=== PATIENT | female | born 1950 | race American Indian/Alaskan Native ===

== ENCOUNTER 2017-11-23 03:29 | Observation (INO) | payer OTHER ==
--- NOTE | 2017-11-23 03:58 | ED PDOC ---
Arrival/HPI - General Chief Complaint: Abdominal Pain Time Seen by Provider: 11/23/17 03:55 Historian: Patient - History of Present Illness Narrative History of Present Illness (Text): 11/23/17 03:57 67 year old female, whose past medical history includes bone cancer in the past , knee replacement, and CVA presents to the emergency department complaining of chest discomfort associated with some nausea that began this evening. Patient denies any fever, chills, shortness of breath, vomiting, diarrhea, urinary symptoms, back pain, neck pain, headache, dizziness, or any other complaints. Time/Duration: Other (this evening) Symptom Onset: Gradual Symptom Course: Unchanged Activities at Onset: Light Context: Home Past Medical History - Provider Review Nursing Documentation Reviewed: Yes - Reproductive Menopause: Yes - Cardiac Hx Hypertension: Yes - Pulmonary Hx Respiratory Disorders: No - Neurological Hx Neurological Disorder: No - HEENT Hx HEENT Disorder: No - Renal Hx Renal Disorder: No - Endocrine/Metabolic Hx Endocrine Disorders: No - Hematological/Oncological Hx Cancer: Yes (bone) - Integumentary Hx Dermatological Disorder: No - Musculoskeletal/Rheumatological Hx Musculoskeletal Disorders: No - Gastrointestinal Hx Gastrointestinal Disorders: No - Genitourinary/Gynecological Hx Genitourinary Disorders: No - Psychiatric Hx Psychophysiologic Disorder: No Hx Substance Use: No Family/Social History - Physician Review Nursing Documentation Reviewed: Yes Family/Social History: No Known Family HX Smoking Status: Never Smoked Hx Alcohol Use: No Hx Substance Use: No Allergies/Home Meds Allergies/Adverse Reactions: Allergies iodine Allergy (Verified 11/23/17 03:41) PAIN Home Medications: Home Meds Medication Instructions Recorded Confirmed Aspirin [Aspirin Chewable] 81 mg PO DAILY 11/23/17 11/23/17 Irbesartan/Hydrochlorothiazide 1 tab PO DAILY 11/23/17 11/23/17 [Irbesartan-Hctz 300-12.5 mg Tb] Iron,Carb/Vit C/Vit B12/Folic 1 tab PO DAILY 11/23/17 11/23/17 [Iron 100 Plus Tablet] Lercan 10 mg PO DAILY 11/23/17 11/23/17 Review of Systems - Physician Review All systems were reviewed & negative as marked: Yes - Review of Systems Constitutional: absent: Fevers, Other (Chills) Respiratory: absent: SOB Cardiovascular: Chest Pain Gastrointestinal: Nausea. absent: Diarrhea, Vomiting Genitourinary Female: absent: Dysuria, Frequency, Hematuria Musculoskeletal: absent: Back Pain, Neck Pain Neurological: absent: Headache, Dizziness Physical Exam Vital Signs Reviewed: Yes Vital Signs Temp Pulse Resp BP Pulse Ox 11/23/17 09:33 98.3 F 63 18 98 11/23/17 07:49 98.5 F 66 19 131/65 98 11/23/17 06:00 65 18 143/72 100 11/23/17 03:43 98.1 F 62 18 149/76 100 Temperature: Afebrile Blood Pressure: Normal Pulse: Regular Respiratory Rate: Normal Appearance: Positive for: Well-Appearing, Non-Toxic, Comfortable Pain Distress: None Mental Status: Positive for: Alert and Oriented X 3 - Systems Exam Head: Present: Atraumatic, Normocephalic Pupils: Present: PERRL Extroacular Muscles: Present: EOMI Conjunctiva: Present: Normal Mouth: Present: Moist Mucous Membranes Neck: Present: Normal Range of Motion Respiratory/Chest: Present: Clear to Auscultation, Good Air Exchange. No: Respiratory Distress, Accessory Muscle Use Cardiovascular: Present: Regular Rate and Rhythm, Normal S1, S2. No: Murmurs Abdomen: No: Tenderness, Distention, Peritoneal Signs Back: Present: Normal Inspection Upper Extremity: Present: Normal Inspection. No: Cyanosis, Edema Lower Extremity: Present: Normal Inspection. No: Edema Neurological: Present: GCS=15, CN II-XII Intact, Speech Normal Skin: Present: Warm, Dry, Normal Color. No: Rashes Psychiatric: Present: Alert, Oriented x 3, Normal Insight, Normal Concentration Medical Decision Making ED Course and Treatment: 11/23/17 03:58 Impression: 67 year old female presents complaining of chest discomfort associated with some nausea that began this evening. Plan: -- EKG -- Labs -- Chest X-ray -- Pepcid, IV Fluids, Zofran Inj -- Reassess and disposition Progress Notes: 11/23/17 05:00 EKG shows Sinus Bradycardia at 59 BPM with RBBB. Interpreted by me. 11/23/17 05:28 CXR Impression: As read by me, no acute process. 11/23/17 06:23 Case discussed with Desktop Publishing Operator and Dr. Ben Munoz who is aware and agrees with the plan. Accepts patient into hospitalist service. - Lab Interpretations Lab Results: 11/23/17 04:30 11/23/17 05:40 Lab Results 11/23/17 05:40: Sodium 144, Potassium 3.8, Chloride 102, Carbon Dioxide 30, Anion Gap 16, BUN 20, Creatinine 1.1, Est GFR ( Amer) 60, Est GFR (Non- Af Amer) 49, Random Glucose 104, Calcium 9.3, Total Bilirubin 0.3, AST 27, ALT 17, Alkaline Phosphatase 73, Lactate Dehydrogenase 670, Total Creatine Kinase 161, Troponin I < 0.01, Total Protein 8.2, Albumin 4.7, Globulin 3.6, Albumin/ Globulin Ratio 1.3, Lipase 127 11/23/17 05:40: PT 9.8, INR 0.86 L, APTT 17.5 L 11/23/17 04:30: WBC 5.9, RBC 3.96, Hgb 11.1 L, Hct 32.8 L, MCV 82.8, MCH 28.0, MCHC 33.8, RDW 12.8, Plt Count 305, MPV 10.3 I have reviewed the lab results: Yes - RAD Interpretation Radiology Orders: 11/23/17 04:01 CHEST PORTABLE [RAD] Stat - EKG Interpretation Interpreted by ED Physician: Yes Type: 12 lead EKG - Medication Orders Current Medication Orders: Acetaminophen (Tylenol 325mg Tab) 650 mg PO Q6 PRN PRN Reason: Pain, Mild (1-3) Aspirin (Aspirin Chewable) 81 mg PO DAILY [facility] Atorvastatin Calcium (Lipitor) 10 mg PO DIN [facility] Enoxaparin Sodium (Lovenox) 40 mg SC DAILY JAZ PRN Reason: Protocol Hydrochlorothiazide (Microzide) 12.5 mg PO DAILY [facility] Sodium Chloride (Sodium Chloride 0.9%) 1,000 mls @ 100 mls/hr IV .Q10H JAZ Last Admin: 11/23/17 04:50 Dose: 100 mls/hr eMAR Start Stop Document 11/23/17 04:50 AD (Rec: 11/23/17 04:50 AD [id number]) Intravenous Solution Start Date 11/23/17 Start Time 04:50 Losartan Potassium (Cozaar) 25 mg PO DAILY [facility] Multivitamins/Minerals (Therapeutic-M Tab) 1 tab PO 0800 [facility] Ondansetron HCl (Zofran Inj) 4 mg IVP Q6 PRN PRN Reason: Nausea/Vomiting Oxycodone/Acetaminophen (Percocet 5/325 Mg Tab) 1 tab PO Q4 PRN PRN Reason: Pain, moderate (4-7) Stop: 11/26/17 12:29 Pantoprazole Sodium (Protonix Ec Tab) 40 mg PO DAILY JAZ Vitamin B Complex/Vit C/Folic Acid (Nephro-Radha) 1 tab PO 0800 JAZ Discontinued Medications Famotidine (Pepcid) 20 mg IVP STAT STA Stop: 11/23/17 04:03 Last Admin: 11/23/17 04:50 Dose: 20 mg IVP Administration Document 11/23/17 04:50 AD (Rec: 11/23/17 04:50 AD [id number]) Charges for Administration # of IVP Administrations 1 Ondansetron HCl (Zofran Inj) 4 mg IVP ONCE ONE Stop: 11/23/17 04:03 Last Admin: 11/23/17 04:50 Dose: 4 mg IVP Administration Document 11/23/17 04:50 AD (Rec: 11/23/17 04:50 AD [id number]) Charges for Administration # of IVP Administrations 1 - Scribe Statement The provider has reviewed the documentation as recorded by the Miroslava Stewart Provider Scribe Attestation: All medical record entries made by the Loretoibnoam were at my direction and personally dictated by me. I have reviewed the chart and agree that the record accurately reflects my personal performance of the history, physical exam, medical decision making, and the department course for this patient. I have also personally directed, reviewed, and agree with the discharge instructions and disposition.\ Disposition/Present on Arrival - Present on Arrival Any Indicators Present on Arrival: No History of DVT/PE: No History of Uncontrolled Diabetes: No Urinary Catheter: No History of Decub. Ulcer: No History Surgical Site Infection Following: None - Disposition Have Diagnosis and Disposition been Completed?: Yes Diagnosis: Chest pain Disposition: HOSPITALIZED Disposition Time: 06:25 Patient Plan: Observation Patient Problems: Current Active Problems Problem Status Onset Chest pain Acute Condition: STABLE
[2017-11-23] MEDS: Sodium Chloride 0.9% 1,000 ML IV SCH ×2 (04:50→14:19)
[2017-11-23 05:09] LABS: HEMOGLOBIN 11.1 g/dL (12.0-16.0); MEAN CELL VOLUME 82.8 fl (80.0-105.0); MEAN CORPUSCULAR HGB CONC 33.8 g/dl (31.0-37.0); MEAN PLATELET VOLUME 10.3 fl (7.0-11.0); RBC 3.96 10^6/uL (3.5-6.1); RED CELL DISTRIBUTION WIDTH 12.8 % (11.5-14.5); WHITE BLOOD COUNT 5.9 10^3/ul (4.5-11.0)
[2017-11-23 05:59] LABS: ALB/GLOB RATIO 1.3 (1.1-1.8); ALBUMIN 4.7 g/dL (3.0-4.8); ALT/SGPT 17 U/L (7-56); AST/SGOT 27 U/L (14-36); BLOOD UREA NITROGEN 20 mg/dL (7-21); CALCIUM 9.3 mg/dL (8.4-10.5); GFR AFRICAN-AMERICAN 60; GFR NON-AFRICAN AMERICAN 49; LIPASE 127 U/L (23-300)
[2017-11-23 06:08] LABS: INR 0.86 (0.93-1.08); PARTIAL THROMBOPLASTIN TIME 17.5 Seconds (25.1-36.5); PROTHROMBIN TIME 9.8 SECONDS (9.4-12.5); TROPONIN I < 0.01 ng/mL
--- NOTE | 2017-11-23 07:12 | CP.PCM.HP ---
<ElyssakelyNabor olson - Last Filed: 11/23/17 14:04> History of Present Illness - History of Present Illness History of Present Illness: Medicine H&P for Dr. Echols cc: chest pain 67 F with PMH that includes HTN, CVA x 2, NH, CAD, Multiple myeloma presents to [facility] [place] for complaint of chest pain. Patient states that the pain began in the evening. It started as a burning pain substernal radiating to the back. She rates it as severe. She states that she hah an associated episode of nausea/ vomiting with NBNB emesis. She also admits to shortness of breath but denies diaphoresis. Denied any aggravating or alleviating factors. She states that she sleep with one pillow. She reports that she can walk many blocks without getting SOB. Denies recent illnes or sick contacts. Admits to chillsand palpitations but denies fevers, abdominal pain, diarrhea, constipation, incontinence, or urinary symptoms. PMH: HTN, CVA x 2, NH, CAD, Multiple myeloma, Anemia, HLD Meds: As per EMR Allergy: Iodine PSH: cardiac cath FH: non-contributory Social: denies tobacco/EtOH/illicit drug use, lives with daughter, applying for [employer] (from [employer]) Present on Admission - Present on Admission Any Indicators Present on Admission: No History of DVT/PE: No History of Uncontrolled Diabetes: No Urinary Catheter: No Decubitus Ulcer Present: No Decubitus Ulcer Stage: Unstageable History Surgical Site Infection Following: None Review of Systems - Review of Systems All systems: reviewed and no additional remarkable complaints except (as per HPI ) Past Patient History - Past Social History Smoking Status: Never Smoked - CARDIAC Hx Hypertension: Yes - PULMONARY Hx Respiratory Disorders: No - NEUROLOGICAL Hx Neurological Disorder: No - HEENT Hx HEENT Problems: No - RENAL Hx Chronic Kidney Disease: No - ENDOCRINE/METABOLIC Hx Endocrine Disorders: No - HEMATOLOGICAL/ONCOLOGICAL Hx Cancer: Yes (bone) - INTEGUMENTARY Hx Dermatological Problems: No - MUSCULOSKELETAL/RHEUMATOLOGICAL Hx Musculoskeletal Disorders: No - GASTROINTESTINAL Hx Gastrointestinal Disorders: No - GENITOURINARY/GYNECOLOGICAL Hx Genitourinary Disorders: No - PSYCHIATRIC Hx Psychophysiologic Disorder: No Hx Substance Use: No - SURGICAL HISTORY Hx Surgeries: No Meds Home Medications: Home Medication List Medication Instructions Recorded Confirmed Type RX: Atorvastatin [Lipitor] 40 mg PO DIN #30 tab 11/24/17 Rx RX: Pantoprazole [Protonix EC Tab] 40 mg PO DAILY #30 ect 11/24/17 Rx RX: Sucralfate [Carafate Oral Susp] 1 gm PO 0630,1130,1630,2200 #56 udc Rx Allergies/Adverse Reactions: Allergies Allergy/AdvReac Type Severity Reaction Status Date / Time iodine Allergy PAIN Verified 11/23/17 03:41 Physical Exam - Constitutional Appears: No Acute Distress - Head Exam Head Exam: ATRAUMATIC, NORMOCEPHALIC - Eye Exam Eye Exam: EOMI, Normal appearance Pupil Exam: PERRL - ENT Exam ENT Exam: Mucous Membranes Moist - Neck Exam Neck exam: Positive for: Normal Inspection - Respiratory Exam Respiratory Exam: Clear to Auscultation Bilateral, NORMAL BREATHING PATTERN - Cardiovascular Exam Cardiovascular Exam: REGULAR RHYTHM, +S1, +S2. absent: Diastolic murmur, Systolic Murmur - GI/Abdominal Exam GI & Abdominal Exam: Soft, Tenderness - Extremities Exam Extremities exam: Positive for: normal capillary refill, pedal edema, pedal pulses present. Negative for: calf tenderness - Back Exam Back exam: absent: CVA tenderness (L), CVA tenderness (R) - Neurological Exam Neurological exam: Alert, CN II-XII Intact, Oriented x3 - Psychiatric Exam Psychiatric exam: Normal Affect, Normal Mood - Skin Skin Exam: Dry, Intact, Normal Color, Warm Results - Vital Signs Recent Vital Signs: Last Vital Signs Temp 98.1 F 11/23/17 03:43 Pulse 62 11/23/17 03:43 Resp 18 11/23/17 03:43 BP 149/76 11/23/17 03:43 Pulse Ox 100 11/23/17 03:43 - Labs Result Diagrams: 11/23/17 04:30 11/23/17 05:40 Assessment & Plan - Assessment and Plan (Free Text) Assessment: 67 F with PMH that includes HTN, CVA x 2, NH, CAD, Multiple myeloma presents to [facility] [place] for complaint of chest pain. Plan: 1.) Chest pain Admit to telemetry EKG Sinus bradycardia, RBBB Troponin neg x 1, f/u second f/u Echo Cardio consult f/u TSH ASA 2.) Back pain Cervical, Thoracic, Lumbar Xrs Tylenol PRN mild pain Percocet PRN for Moderate Pain 3.) HTN Losartan hCTZ Norvasc 4.) CAD ASA Lipitor 5.) HLD Lipitor 6.) Prophylactic Measures Lovenox Protonix HHD - Date & Time Date: 11/23/17 Time: 07:00 <StephanieLewis eason - Last Filed: 11/24/17 14:11> Results - Vital Signs Recent Vital Signs: Last Vital Signs Temp 98 F 11/24/17 11:28 Pulse 62 11/24/17 11:28 Resp 18 11/24/17 11:28 BP 141/68 11/24/17 11:28 Pulse Ox 100 11/24/17 05:50 - Labs Result Diagrams: 11/24/17 08:30 11/24/17 08:30 Labs: Laboratory Results - last 24 hr 11/23/17 11/24/17 11/24/17 18:30 08:30 08:30 WBC 4.7 D RBC 3.70 Hgb 10.3 L Hct 31.2 L MCV 84.3 MCH 27.8 MCHC 33.0 RDW 12.6 Plt Count 258 MPV 9.6 Gran % 44.1 L Lymph % (Auto) 44.5 H Knox % (Auto) 8.4 H Eos % (Auto) 3.0 Baso % (Auto) 0.0 Gran # 2.06 Lymph # (Auto) 2.1 Knox # (Auto) 0.4 Eos # (Auto) 0.1 Baso # (Auto) 0.00 Sodium 147 Potassium 4.3 Chloride 106 Carbon Dioxide 33 Anion Gap 12 BUN 14 Creatinine 1.0 Est GFR ( Amer) > 60 Est GFR (Non-Af Amer) 55 Random Glucose 89 Calcium 8.5 Total Bilirubin 0.2 AST 30 ALT 19 Alkaline Phosphatase 61 Troponin I < 0.01 Total Protein 6.9 Albumin 3.7 Globulin 3.1 Albumin/Globulin Ratio 1.2 Attending/Attestation - Attestation I have personally seen and examined this patient.: Yes I have fully participated in the care of the patient.: Yes I have reviewed all pertinent clinical information: Yes Notes (Text): 11/24/17 13:47 Medical record note made by the resident after discussion with my direction and input after the patient was personally seen and examined by me. I have reviewed the chart and agree that the record accurately reflects by personal performance of the history, physical exam, data review, and medical decision-making, in the course for the patient. I have also personally directed the plan of care. History was taken with the help of bandage winding machine operator.Patient is poor historian. 67 old Female , recent immigrant from [place], with PMH that includes HTN, CVA x ?, CAD, MUS is admitted with epigastric pain, has tenderness in epeigatric area.Due to H/O CAD, and NH in [place] , will monitor patient in telemetry, will get serial troponinin, w will get 2D echo and cardiology consult. Patient calcium level is normal, there is no renal failure.Due to H/O MUS/ Multiple myeloma?, we will get x rays of spine for skeletal survey. Management plan was discussed in detail with patient. Education was provided. 11/24/17 14:10
[2017-11-23 08:23] LABS: HDL CHOLESTEROL 51 mg/dL (29-60)
[2017-11-23 08:34] LABS: LDL CHOLESTEROL 155 mg/dL (0-129)
--- NOTE | 2017-11-23 09:37 | RAD ---
HISTORY: chest pain COMPARISON: No prior. FINDINGS: LUNGS: No active pulmonary disease. PLEURA: No significant pleural effusion identified, no pneumothorax apparent. CARDIOVASCULAR: Normal. OSSEOUS STRUCTURES: No significant abnormalities. VISUALIZED UPPER ABDOMEN: Normal. OTHER FINDINGS: None. IMPRESSION: No active disease.
[2017-11-23 13:27] VITALS: BMI 29.7
[2017-11-23] MEDS ORDERED: Pneumococcal 23-Valent Vaccine IM ONE (13:28)
--- NOTE | 2017-11-23 14:05 | RAD ---
PROCEDURE: Cervical Spine Radiographs. HISTORY: Pain. COMPARISON: None. FINDINGS: BONES: Alignment maintained. No fracture. Dens Intact. DISC SPACES: There is disc degeneration at C4-5 SOFT TISSUES: Normal. No prevertebral soft tissue swelling. OTHER FINDINGS: None. IMPRESSION: Mild disc degeneration at C4-5
--- NOTE | 2017-11-23 14:06 | RAD ---
HISTORY: back pain COMPARISON: No prior. FINDINGS: BONES: Alignment maintained. No fracture. DISC SPACES: There is disc degeneration in the lower thoracic spine SOFT TISSUES: Normal. OTHER FINDINGS: None. IMPRESSION: Disc degeneration in the lower thoracic spine
--- NOTE | 2017-11-23 14:07 | RAD ---
PROCEDURE: Radiographs of the Lumbar Spine. HISTORY: back COMPARISON: No prior. FINDINGS: BONES: Normal alignment. No listhesis. No fracture. DISC SPACES: Unremarkable. OTHER FINDINGS: None. IMPRESSION: Unremarkable radiographs of the lumbar spine.
[2017-11-23] MEDS: Pantoprazole 40 mg EC Tab PO SCH (14:08)
[2017-11-23] MEDS: Enoxaparin 40 mg Syringe SC SCH (14:08)
--- NOTE | 2017-11-23 15:19 | CON ---
DATE: 11/23/2017 CARDIOLOGY CONSULTATION HISTORY OF PRESENT ILLNESS: The patient is a 67-year-old woman who was from [facility] who presents with atypical epigastric discomfort. The patient has a history of hypertension and was found to have hypercholesterolemia. No diabetes mellitus. No previous cardiac history. SOCIAL HISTORY: The patient denies smoking. REVIEW OF SYSTEMS: A 14-point review of systems was reviewed in detail. No cardiac symptomatology is noted. PHYSICAL EXAMINATION: VITAL SIGNS: Stable. NECK: Negative JVD. LUNGS: Without rales. HEART: S1 and S2. EXTREMITIES: Without edema. LABORATORY DATA: Cholesterol was 260. Troponins are negative x2. IMPRESSION: 1. Atypical chest pain. 2. No evidence for acute coronary syndrome. 3. Hypercholesterolemia. 4. Hypertension. PLAN: Given these findings, the patient should be started on statin therapy. There is no evidence for acute coronary syndrome. We will obtain the third troponin. She will need to be on a cardiac risk reduction program. Alen Diaz MD
--- NOTE | 2017-11-23 16:52 | CARD ---
APPROVED REPORT EKG Measurement Heart [id number] <Conclusion> Sinus bradycardia Right bundle branch block Abnormal ECG
[2017-11-23] MEDS: Oxycodone/Acetaminophen 5/325 mg Tab PO PRN (21:28)
[2017-11-24] MEDS: Oxycodone/Acetaminophen 5/325 mg Tab PO PRN (05:35)
[2017-11-24] MEDS: Sodium Chloride 0.9% 1,000 ML IV SCH (05:36)
[2017-11-24 05:51] VITALS: RESP 18
[2017-11-24] MEDS ORDERED: Multivitamin With Minerals Tab PO SCH (08:00)
[2017-11-24] MEDS ORDERED: Multivitamin Vitamin B Complex (Nephro-Vite) Tab PO SCH (08:00)
[2017-11-24 08:42] LABS: EOS # 0.1 (0.0-0.7); GRAN # 2.06 (1.4-6.5); GRAN % 44.1 % (50.0-68.0); HEMOGLOBIN 10.3 g/dL (12.0-16.0); LYMPH # 2.1 (1.2-3.4); LYMPH % 44.5 % (22.0-35.0); MEAN CELL VOLUME 84.3 fl (80.0-105.0); MEAN CORPUSCULAR HEMOGLOBIN 27.8 pg (25.0-35.0); MEAN PLATELET VOLUME 9.6 fl (7.0-11.0); MONO # 0.4 (0.1-0.6); MONO % 8.4 % (1.0-6.0); RBC 3.7 10^6/uL (3.5-6.1); RED CELL DISTRIBUTION WIDTH 12.6 % (11.5-14.5); WHITE BLOOD COUNT 4.7 10^3/ul (4.5-11.0)
[2017-11-24 08:59] LABS: ALB/GLOB RATIO 1.2 (1.1-1.8); ALBUMIN 3.7 g/dL (3.0-4.8); ALT/SGPT 19 U/L (7-56); AST/SGOT 30 U/L (14-36); BLOOD UREA NITROGEN 14 mg/dL (7-21); CALCIUM 8.5 mg/dL (8.4-10.5); GFR AFRICAN-AMERICAN > 60; GFR NON-AFRICAN AMERICAN 55
[2017-11-24] MEDS: Enoxaparin 40 mg Syringe SC SCH (10:11)
[2017-11-24] MEDS: Pantoprazole 40 mg EC Tab PO SCH (10:12)
--- NOTE | 2017-11-24 10:48 | CP.PCM.DIS ---
<Ronnie Jaramillo - Last Filed: 11/24/17 11:15> Provider - Provider Date of Admission: 11/23/17 06:16 Attending physician: Lewis Echols MD Primary care physician: NO PRIMARY CARE PROVIDER Consults: Dr. Diaz Time Spent in preparation of Discharge (in minutes): 35 Hospital Course - Lab Results Lab Results: Most Recent Lab Values WBC 4.7 10^3/ul (4.5-11.0) D 11/24/17 08:30 RBC 3.70 10^6/uL (3.5-6.1) 11/24/17 08:30 Hgb 10.3 g/dL (12.0-16.0) L 11/24/17 08:30 Hct 31.2 % (36.0-48.0) L 11/24/17 08:30 MCV 84.3 fl (80.0-105.0) 11/24/17 08:30 MCH 27.8 pg (25.0-35.0) 11/24/17 08:30 MCHC 33.0 g/dl (31.0-37.0) 11/24/17 08:30 RDW 12.6 % (11.5-14.5) 11/24/17 08:30 Plt Count 258 10^3/uL (120.0-450.0) 11/24/17 08:30 MPV 9.6 fl (7.0-11.0) 11/24/17 08:30 Gran % 44.1 % (50.0-68.0) L 11/24/17 08:30 Lymph % (Auto) 44.5 % (22.0-35.0) H 11/24/17 08:30 [place] % (Auto) 8.4 % (1.0-6.0) H 11/24/17 08:30 Eos % (Auto) 3.0 % (1.5-5.0) 11/24/17 08:30 Baso % (Auto) 0.0 % (0.0-3.0) 11/24/17 08:30 Gran # 2.06 (1.4-6.5) 11/24/17 08:30 Lymph # (Auto) 2.1 (1.2-3.4) 11/24/17 08:30 [place] # (Auto) 0.4 (0.1-0.6) 11/24/17 08:30 Eos # (Auto) 0.1 (0.0-0.7) 11/24/17 08:30 Baso # (Auto) 0.00 K/mm3 (0.0-2.0) 11/24/17 08:30 PT 9.8 SECONDS (9.4-12.5) 11/23/17 05:40 INR 0.86 (0.93-1.08) L 11/23/17 05:40 APTT 17.5 Seconds (25.1-36.5) L 11/23/17 05:40 Sodium 147 mmol/L (132-148) 11/24/17 08:30 Potassium 4.3 mmol/L (3.6-5.0) 11/24/17 08:30 Chloride 106 mmol/L (98-107) 11/24/17 08:30 Carbon Dioxide 33 mmol/L (21-33) 11/24/17 08:30 Anion Gap 12 (10-20) 11/24/17 08:30 BUN 14 mg/dL (7-21) 11/24/17 08:30 Creatinine 1.0 mg/dl (0.7-1.2) 11/24/17 08:30 Est GFR ( Amer) > 60 11/24/17 08:30 Est GFR (Non-Af Amer) 55 11/24/17 08:30 Random Glucose 89 mg/dL (70-110) 11/24/17 08:30 Hemoglobin A1c 5.5 % (4.2-6.5) 11/23/17 08:11 Calcium 8.5 mg/dL (8.4-10.5) 11/24/17 08:30 Total Bilirubin 0.2 mg/dL (0.2-1.3) 11/24/17 08:30 AST 30 U/L (14-36) 11/24/17 08:30 ALT 19 U/L (7-56) 11/24/17 08:30 Alkaline Phosphatase 61 U/L (38-126) 11/24/17 08:30 Lactate Dehydrogenase 670 U/L (333-699) 11/23/17 05:40 Total Creatine Kinase 161 U/L (35-230) 11/23/17 05:40 Troponin I < 0.01 ng/mL 11/23/17 18:30 Total Protein 6.9 g/dL (5.8-8.3) 11/24/17 08:30 Albumin 3.7 g/dL (3.0-4.8) 11/24/17 08:30 Globulin 3.1 gm/dL 11/24/17 08:30 Albumin/Globulin Ratio 1.2 (1.1-1.8) 11/24/17 08:30 Triglycerides 121 mg/dL (35-160) 11/23/17 08:11 Cholesterol 269 mg/dL (130-200) H 11/23/17 08:11 LDL Cholesterol Direct 155 mg/dL (0-129) H 11/23/17 08:11 HDL Cholesterol 51 mg/dL (29-60) 11/23/17 08:11 Lipase 127 U/L (23-300) 11/23/17 05:40 TSH 3rd Generation 2.01 mIU/mL (0.46-4.68) 11/23/17 08:11 - Hospital Course Hospital Course: 67 female with a past medical history that includes hypertension, CVA x 2, [place], CAD, and MGUS presents to [facility] for complaint of chest pain. Patient states that the pain began in the evening. It started as a burning pain substernal radiating to the back. She rates it as severe. She states that she had an associated episode of nausea/vomiting with non-bloody, non-bilious emesis. She also admits to shortness of breath but denies diaphoresis. Denied any aggravating or alleviating factors. She states that she sleep with one pillow. She reports that she can walk many blocks without getting SOB. Denies recent illnes or sick contacts. Admits to chillsand palpitations but denies fevers, abdominal pain, diarrhea, constipation, incontinence, or urinary symptoms. Serial troponins and EKG were negative for ischemia. She underwent radiographs of the cervical, thoracic, and lumbar spine to rule out any active myeloma lesions. Cardiology saw her and recommended continued cardiac risk reduction with a statin. She underwent an echocardiogram in which the preliminary read was interpreted as normal. She was discharged with Protonix, Carafate, and a moderate dose intensity of Atorvastatin (her LDL was 155). She will be following up with the [facility]. Her daughter at bedside was also informed on the patient's hospital course. - Date & Time of H&P Date of H&P: 11/24/17 Time of H&P: 10:58 Discharge Exam - Head Exam Head Exam: ATRAUMATIC, NORMOCEPHALIC - Eye Exam Eye Exam: EOMI, Normal appearance - ENT Exam ENT Exam: Mucous Membranes Moist, Normal Oropharynx - Respiratory Exam Respiratory Exam: Clear to PA & Lateral, NORMAL BREATHING PATTERN. absent: Accessory Muscle Use - Cardiovascular Exam Cardiovascular Exam: RRR, +S1, +S2 - GI/Abdominal Exam GI & Abdominal Exam: Normal Bowel Sounds. absent: Unremarkable - Extremities Exam Extremities exam: normal inspection - Neurological Exam Neurological exam: Alert, CN II-XII Intact, Oriented x3 - Psychiatric Exam Psychiatric exam: Normal Affect, Normal Mood - Skin Skin Exam: Dry, Intact, Normal Color, Warm Discharge Plan - Discharge Medications Prescriptions: Atorvastatin [Lipitor] 40 mg PO DIN #30 tab Pantoprazole [Protonix EC Tab] 40 mg PO DAILY #30 ect Sucralfate [Carafate Oral Susp] 1 gm PO 0630,1130,1630,2200 #56 udc - Follow Up Plan Condition: STABLE Disposition: HOME/ ROUTINE Instructions: Chest Pain (DC) Additional Instructions: 1) Patient to follow up with [facility]. 2) Patient to take all medications as directed, unless otherwise indicated. Referrals: PCP,NO [Primary Care Provider] - <Lewis Echols - Last Filed: 11/24/17 14:09> Provider - Provider Date of Admission: 11/23/17 06:16 Attending physician: Lewis Echols MD Primary care physician: NO PRIMARY CARE PROVIDER Hospital Course - Lab Results Lab Results: Most Recent Lab Values WBC 4.7 10^3/ul (4.5-11.0) D 11/24/17 08:30 RBC 3.70 10^6/uL (3.5-6.1) 11/24/17 08:30 Hgb 10.3 g/dL (12.0-16.0) L 11/24/17 08:30 Hct 31.2 % (36.0-48.0) L 11/24/17 08:30 MCV 84.3 fl (80.0-105.0) 11/24/17 08:30 MCH 27.8 pg (25.0-35.0) 11/24/17 08:30 MCHC 33.0 g/dl (31.0-37.0) 11/24/17 08:30 RDW 12.6 % (11.5-14.5) 11/24/17 08:30 Plt Count 258 10^3/uL (120.0-450.0) 11/24/17 08:30 MPV 9.6 fl (7.0-11.0) 11/24/17 08:30 Gran % 44.1 % (50.0-68.0) L 11/24/17 08:30 Lymph % (Auto) 44.5 % (22.0-35.0) H 11/24/17 08:30 [place] % (Auto) 8.4 % (1.0-6.0) H 11/24/17 08:30 Eos % (Auto) 3.0 % (1.5-5.0) 11/24/17 08:30 Baso % (Auto) 0.0 % (0.0-3.0) 11/24/17 08:30 Gran # 2.06 (1.4-6.5) 11/24/17 08:30 Lymph # (Auto) 2.1 (1.2-3.4) 11/24/17 08:30 [place] # (Auto) 0.4 (0.1-0.6) 11/24/17 08:30 Eos # (Auto) 0.1 (0.0-0.7) 11/24/17 08:30 Baso # (Auto) 0.00 K/mm3 (0.0-2.0) 11/24/17 08:30 PT 9.8 SECONDS (9.4-12.5) 11/23/17 05:40 INR 0.86 (0.93-1.08) L 11/23/17 05:40 APTT 17.5 Seconds (25.1-36.5) L 11/23/17 05:40 Sodium 147 mmol/L (132-148) 11/24/17 08:30 Potassium 4.3 mmol/L (3.6-5.0) 11/24/17 08:30 Chloride 106 mmol/L (98-107) 11/24/17 08:30 Carbon Dioxide 33 mmol/L (21-33) 11/24/17 08:30 Anion Gap 12 (10-20) 11/24/17 08:30 BUN 14 mg/dL (7-21) 11/24/17 08:30 Creatinine 1.0 mg/dl (0.7-1.2) 11/24/17 08:30 Est GFR ( Amer) > 60 11/24/17 08:30 Est GFR (Non-Af Amer) 55 11/24/17 08:30 Random Glucose 89 mg/dL (70-110) 11/24/17 08:30 Hemoglobin A1c 5.5 % (4.2-6.5) 11/23/17 08:11 Calcium 8.5 mg/dL (8.4-10.5) 11/24/17 08:30 Total Bilirubin 0.2 mg/dL (0.2-1.3) 11/24/17 08:30 AST 30 U/L (14-36) 11/24/17 08:30 ALT 19 U/L (7-56) 11/24/17 08:30 Alkaline Phosphatase 61 U/L (38-126) 11/24/17 08:30 Lactate Dehydrogenase 670 U/L (333-699) 11/23/17 05:40 Total Creatine Kinase 161 U/L (35-230) 11/23/17 05:40 Troponin I < 0.01 ng/mL 11/23/17 18:30 Total Protein 6.9 g/dL (5.8-8.3) 11/24/17 08:30 Albumin 3.7 g/dL (3.0-4.8) 11/24/17 08:30 Globulin 3.1 gm/dL 11/24/17 08:30 Albumin/Globulin Ratio 1.2 (1.1-1.8) 11/24/17 08:30 Triglycerides 121 mg/dL (35-160) 11/23/17 08:11 Cholesterol 269 mg/dL (130-200) H 11/23/17 08:11 LDL Cholesterol Direct 155 mg/dL (0-129) H 11/23/17 08:11 HDL Cholesterol 51 mg/dL (29-60) 11/23/17 08:11 Lipase 127 U/L (23-300) 11/23/17 05:40 TSH 3rd Generation 2.01 mIU/mL (0.46-4.68) 11/23/17 08:11 Attending/Attestation - Attestation I have personally seen and examined this patient.: Yes I have fully participated in the care of the patient.: Yes I have reviewed all pertinent clinical information, including history, physical exam and plan: Yes Notes (Text): 11/24/17 14:04 Medical record note made by the resident after discussion with my direction and input after the patient was personally seen and examined by me. I have reviewed the chart and agree that the record accurately reflects by personal performance of the history, physical exam, data review, and medical decision-making, in the course for the patient. I have also personally directed the plan of care. 67 old Female , recent immigrant from [place], with PMH that includes HTN, CVA x ?, CAD, MUS was admitted with epigastric pain, has tenderness in epeigatric area.Patient was monitored in telemetry, serial troponinin are normal, patient was evaluated by cardiology and out patient stress test has been recommended.Patient has been started on PPI and Carafate Patient calcium level is normal, there is no renal failure.Due to H/O MUS/ Multiple myeloma?, skeletal survey was done that was negative for any lytic lesion, it showed degenrative spine disease. Management plan was discussed in detail with patient and daughter who is at bed side.. Education was provided.
[2017-11-24] MEDS: Sucralfate 1 gm/10 ml Oral Susp UD PO SCH ×2 (11:59→17:02)
--- NOTE | 2017-11-24 12:16 | PN ---
DATE: 11/24/2017 CARDIOLOGY FOLLOWUP SUBJECTIVE: The patient is asymptomatic. PHYSICAL EXAMINATION: VITAL SIGNS: Blood pressure is 131/61, the heart rates in the 50s, normal sinus rhythm. NECK: Negative JVD. LUNGS: Without rales. HEART: Reveals S1, S2. EXTREMITIES: Without edema. LABORATORY DATA: Troponins are negative. Preliminary echocardiogram reveals good LV function. IMPRESSION: 1. No evidence for acute coronary syndrome. 2. Hypercholesterolemia. 3. History of hypertension. PLAN: Given these findings, no further cardiac workup is indicated today. The patient has been advised to have an outpatient stress test. An appointment has been given to the patient. From a cardiac perspective, the patient can be discharged. Alen Diaz MD
--- NOTE | 2017-11-24 15:05 | CARD ---
APPROVED REPORT EXAM: Two-dimensional and M-mode echocardiogram with Doppler and color Doppler. INDICATION EDEMA 2D DIMENSIONS Left Atrium (2D)4.5 (1.6-4.0cm)IVSd1.2 (0.7-1.1cm) LVDd4.5 (3.9-5.9cm)PWd1.3 (0.7-1.1cm) LVDs3.0 (2.5-4.0cm)FS (%) 33.0 % LVEF (%)61.7 (>50%) M-Mode DIMENSIONS Aortic Root3.20 (2.2-3.7cm)Aortic Cusp Exc.1.70 (1.5-2.0cm) Aortic Valve AoV Peak Tllsuail685.0cm/sAoV VTI43.1cmAO Peak GR.13mmHg LVOT Peak Xnmhuhab373.0cm/sLVOT VTI30.70cmAO Mean GR.6mmHg Mitral Valve MV E Vpxanmvp785.0cm/sMV A Pyuwgeyw385.0cm/sE/A ratio0.9 TDI Lateral E' Peak V8.29cm/sMedial E' Peak V4.68cm/sE/Lateral E'12.8 E/Medial E'22.6 Pulmonary Valve PV Peak Ryujiaon88.7cm/sPV Peak Grad.1mmHg Tricuspid Valve TR Peak Hzeabijy740pb/sRAP YWMTUFBW02acIeFZ Peak Gr.28mmHg YBZT15fkOp LEFT VENTRICLE The left ventricle is normal size. There is normal left ventricular wall thickness. The left ventricular function is normal. The left ventricular ejection fraction is within the normal range. There is normal LV segmental wall motion. Transmitral Doppler flow pattern is Grade I-abnormal relaxation pattern. RIGHT VENTRICLE The right ventricle is normal size. There is normal right ventricular wall thickness. The right ventricular systolic function is normal. ATRIA The left atrium is mildly dilated. The right atrium size is normal. AORTIC VALVE The aortic valve is moderately thickened. No aortic regurgitation is present. There is no aortic valvular stenosis. MITRAL VALVE The mitral valve is moderately thickened. There is no mitral valve regurgitation noted. There is no mitral valve stenosis. TRICUSPID VALVE There is mild tricuspid regurgitation. There is mild pulmonary hypertension. GREAT VESSELS The aortic root is normal in size. PERICARDIAL EFFUSION There is no pericardial effusion. <Conclusion> The left ventricle is normal size. There is normal left ventricular wall thickness. The left ventricular function is normal. The left ventricular ejection fraction is within the normal range. There is normal LV segmental wall motion. Transmitral Doppler flow pattern is Grade I-abnormal relaxation pattern. There is mild tricuspid regurgitation. There is mild pulmonary hypertension.
[2017-11-24 17:15] VITALS: BP 139/69; PULSE 65; TEMP 97.8; O2SAT 98
== END 2017-11-24 18:57 | disposition home or self-care (01) ==
LOC: ED 03:29 → ERH 06:16 → 2RSO 09:49
PROVIDERS: ADMIT Internal Medicine; ATTEND Internal Medicine
DX: R07.89 Other chest pain (principal); C90.00 Multiple myeloma not having achieved remission; I10 Essential (primary) hypertension; I25.10 Atherosclerotic heart disease of native coronary artery without angina pectoris; E78.00 Pure hypercholesterolemia, unspecified; E78.5 Hyperlipidemia, unspecified; Z79.899 Other long term (current) drug therapy; Z85.830 Personal history of malignant neoplasm of bone; Z86.73 Personal history of transient ischemic attack (TIA), and cerebral infarction without residual deficits; Z96.659 Presence of unspecified artificial knee joint; Z88.8 Allergy status to other drugs, medicaments and biological substances
CPT/HCPCS: 36415; 71045; 72040; 72070; 72100; 80053; 80061; 82550; 83036; 83615; 83690; 84443; 84484; 85025; 85027; 85610; 85730; 93005; 93306; 96372; 96374; 96375; 97116; 97161; 99285; G0378; G8978; G8979; J1650; J2405; J7040

== ENCOUNTER 2018-02-09 22:45 | Emergency (ER) | payer OTHER ==
[2018-02-09 23:09] VITALS: BMI 32.1
--- NOTE | 2018-02-09 23:38 | ED PDOC ---
Arrival/HPI - General Chief Complaint: Abdominal Pain Time Seen by Provider: 02/09/18 23:07 Historian: Patient, Day Care Aide (ID: [id number]) - History of Present Illness Narrative History of Present Illness (Text): 02/09/18 23:32 67 year old female, whose past medical history includes hypertension, CVA x 2, [place], CAD, Multiple myeloma, Anemia, and hyperlipidemia, presents to the emergency department complaining of chest pain and abdominal pain for the past 3 days. Patient is a poor historian. Patient reports subjective fever yesterday and vomiting x2, but denies any chills, shortness of breath, diarrhea, urinary symptoms, back pain, neck pain, headache, dizziness, or any other complaints. Day Care Aide: ID# [id number] 02/10/18 04:36 Time/Duration: Other (3 days) Symptom Onset: Gradual Symptom Course: Unchanged Activities at Onset: Light Context: Home Past Medical History - Provider Review Nursing Documentation Reviewed: Yes - Cardiac Hx Hypertension: Yes - Pulmonary Hx Respiratory Disorders: No - Neurological Hx Neurological Disorder: No - HEENT Hx HEENT Disorder: No - Renal Hx Renal Disorder: No - Endocrine/Metabolic Hx Endocrine Disorders: No - Hematological/Oncological Hx Cancer: Yes (bone) - Integumentary Hx Dermatological Disorder: No - Musculoskeletal/Rheumatological Hx Musculoskeletal Disorders: No - Gastrointestinal Hx Gastrointestinal Disorders: No - Genitourinary/Gynecological Hx Genitourinary Disorders: No - Psychiatric Hx Psychophysiologic Disorder: No Hx Substance Use: No - Surgical History Hx Hysterectomy: Yes Hx Orthopedic Surgery: Yes (left knee sx) Other/Comment: left breast benign cyst removed Family/Social History - Physician Review Nursing Documentation Reviewed: Yes Family/Social History: No Known Family HX Smoking Status: Never Smoked Hx Alcohol Use: No Hx Substance Use: No Allergies/Home Meds Allergies/Adverse Reactions: Allergies iodine Allergy (Verified 02/09/18 23:10) PAIN Home Medications: Home Meds Medication Instructions Recorded Confirmed Irbesartan/Hydrochlorothiazide 1 tab PO DAILY 11/23/17 02/09/18 [Irbesartan-Hctz 300-12.5 mg Tb] Iron,Carb/Vit C/Vit B12/Folic 1 tab PO DAILY 11/23/17 02/09/18 [Iron 100 Plus Tablet] Review of Systems - Physician Review All systems were reviewed & negative as marked: Yes - Review of Systems Constitutional: Fevers. absent: Other (Chills) Respiratory: absent: SOB Cardiovascular: Chest Pain Gastrointestinal: Abdominal Pain, Vomiting. absent: Diarrhea Genitourinary Female: absent: Dysuria, Frequency, Hematuria Musculoskeletal: absent: Back Pain, Neck Pain Skin: absent: Other Neurological: absent: Dizziness Physical Exam Vital Signs Reviewed: Yes Vital Signs Temp Pulse Resp BP Pulse Ox 02/10/18 04:44 98.2 F 69 18 120/72 100 02/09/18 23:57 98.2 F 68 16 119/61 100 Temperature: Afebrile Blood Pressure: Normal Pulse: Regular Respiratory Rate: Normal Appearance: Positive for: Well-Appearing, Non-Toxic, Comfortable Pain Distress: None Mental Status: Positive for: Alert and Oriented X 3 - Systems Exam Head: Present: Atraumatic, Normocephalic Pupils: Present: PERRL Extroacular Muscles: Present: EOMI Conjunctiva: Present: Normal Mouth: Present: Moist Mucous Membranes Neck: Present: Normal Range of Motion Respiratory/Chest: Present: Clear to Auscultation, Good Air Exchange. No: Respiratory Distress, Accessory Muscle Use Cardiovascular: Present: Regular Rate and Rhythm, Normal S1, S2. No: Murmurs Abdomen: No: Tenderness, Distention, Peritoneal Signs Back: Present: Normal Inspection Upper Extremity: Present: Normal Inspection. No: Cyanosis, Edema Lower Extremity: Present: Normal Inspection. No: Edema Neurological: Present: GCS=15, CN II-XII Intact, Speech Normal Skin: Present: Warm, Dry, Normal Color. No: Rashes Psychiatric: Present: Alert, Oriented x 3, Normal Insight, Normal Concentration Medical Decision Making ED Course and Treatment: 02/09/18 23:32 Impression: 67 year old female presents complaining of chest pain and abdominal pain for the past 3 days associated with fever and vomiting. atypical cp. noted recent neg stress test. pt with various complaints. Plan: -- CT Abd & Pelvis w/o Contrast -- EKG -- Labs -- Chest X-ray -- Protonix Inj -- Urinalysis -- Reassess and disposition Prior Visits: Notes and results from previous visits were reviewed. Patient was last seen in the emergency department on 11/23/17 presents complaining of chest discomfort associated with some nausea that began this evening. Patient was admitted. Progress Notes: 02/09/18 23:48 EKG shows NSR at 66 BPM with RBBB no interval changes from pervious EKG November 2017. Interpreted by me. CXR Impression: As read by me, negative. 02/10/18 03:56 EXAM:CT Abdomen and Pelvis Without Intravenous Contrast Dictated and Authenticated by: Rayo Blanca MD 02/10/2018 3:50 AM IMPRESSION: Prominent bilateral ureters without obstructing stones identified. No definite acute abdominal pathologic finding. 02/10/18 04:[address] cxr neg as read by me. pt sleeping through ed stay in nad. advise outpt fu and return precaution 02/10/18 06:36 stress test neg noted in december. - Lab Interpretations Lab Results: 02/10/18 01:15 02/10/18 01:15 Lab Results 02/10/18 03:15: Urine Color Light yellow, Urine Appearance Clear, Urine pH 6.0, Ur Specific [place] 1.010, Urine Protein Trace H, Urine Glucose (UA) Negative, Urine Ketones Trace H, Urine Blood Negative, Urine Nitrate Negative, Urine Bilirubin Negative, Urine Urobilinogen 0.2, Ur Leukocyte Esterase Negative, Urine RBC 0 - 2, Urine WBC Negative, Ur Epithelial Cells None, Urine Bacteria Occ 02/10/18 01:15: Sodium 140, Potassium 3.8, Chloride 103, Carbon Dioxide 29, Anion Gap 12, BUN 28 H, Creatinine 1.2, Est GFR ( Amer) 54, Est GFR (Non- Af Amer) 45, Random Glucose 96, Calcium 8.9, Magnesium 2.4 H, Total Bilirubin 0.2, AST 33, ALT 16, Alkaline Phosphatase 72, Lactate Dehydrogenase 593, Total Creatine Kinase 138, Troponin I < 0.01, Total Protein 7.0, Albumin 3.9, Globulin 3.1, Albumin/Globulin Ratio 1.3, Lipase 123 02/10/18 01:15: PT 10.9, INR 0.96, APTT 25.2 02/10/18 01:15: WBC 6.8 D, RBC 3.59, Hgb 10.0 L, Hct 29.8 L, MCV 83.0, MCH 27.9 , MCHC 33.6, RDW 12.7, Plt Count 271, MPV 9.4, Gran % 55.3, Lymph % (Auto) 32.3 , [place] % (Auto) 10.0 H, Eos % (Auto) 2.1, Baso % (Auto) 0.3, Gran # 3.74, Lymph # (Auto) 2.2, [place] # (Auto) 0.7 H, Eos # (Auto) 0.1, Baso # (Auto) 0.02 I have reviewed the lab results: Yes - RAD Interpretation Radiology Orders: 02/09/18 23:31 CHEST PORTABLE [RAD] Stat 02/09/18 23:33 ABD & PELVIS W/O PO OR IV CONT [CT] Stat - EKG Interpretation Interpreted by ED Physician: Yes Type: 12 lead EKG - Medication Orders Current Medication Orders: Discontinued Medications Pantoprazole Sodium (Protonix Inj) 40 mg IVP STAT STA Stop: 02/09/18 23:33 Last Admin: 02/10/18 04:04 Dose: - Scribe Statement The provider has reviewed the documentation as recorded by the Miroslava Stewart Provider Scribe Attestation: All medical record entries made by the Loretoibnoam were at my direction and personally dictated by me. I have reviewed the chart and agree that the record accurately reflects my personal performance of the history, physical exam, medical decision making, and the department course for this patient. I have also personally directed, reviewed, and agree with the discharge instructions and disposition. Disposition/Present on Arrival - Present on Arrival Any Indicators Present on Arrival: No History of DVT/PE: No History of Uncontrolled Diabetes: No Urinary Catheter: No History of Decub. Ulcer: No History Surgical Site Infection Following: None - Disposition Have Diagnosis and Disposition been Completed?: Yes Diagnosis: Abdominal pain, Chest pain Disposition: HOME/ ROUTINE Disposition Time: 04:00 Condition: STABLE Discharge Instructions (ExitCare): Chest Pain, Acute Abdomen (Belly Pain), Adult (DC), Chest Pain (ED) Additional Instructions: please follow up with your doctor. return to er with worsening symptoms or concerns. Referrals: [facility] [Outside] - Follow up with primary [facility] [Outside] - Follow up with primary Frankie Swann MD [Staff Provider] - Follow up with primary Carloz Blakely MD [Staff Provider] - Follow up with primary Forms: [employer] (Albanian)
[2018-02-09 23:57] VITALS: TEMP 98.2; O2SAT 100
[2018-02-10 01:27] LABS: BASO # 0.02 K/mm3 (0.0-2.0); BASO % 0.3 % (0.0-3.0); EOS # 0.1 (0.0-0.7); EOS % 2.1 % (1.5-5.0); GRAN # 3.74 (1.4-6.5); GRAN % 55.3 % (50.0-68.0); LYMPH # 2.2 (1.2-3.4); LYMPH % 32.3 % (22.0-35.0); MEAN CORPUSCULAR HEMOGLOBIN 27.9 pg (25.0-35.0); MEAN CORPUSCULAR HGB CONC 33.6 g/dl (31.0-37.0); MEAN PLATELET VOLUME 9.4 fl (7.0-11.0); MONO # 0.7 (0.1-0.6); RBC 3.59 10^6/uL (3.5-6.1); RED CELL DISTRIBUTION WIDTH 12.7 % (11.5-14.5); WHITE BLOOD COUNT 6.8 10^3/ul (4.5-11.0)
[2018-02-10 01:37] LABS: INR 0.96; PROTHROMBIN TIME 10.9 SECONDS (9.4-12.5)
[2018-02-10 01:40] LABS: ALB/GLOB RATIO 1.3 (1.1-1.8); ALBUMIN 3.9 g/dL (3.0-4.8); ALT/SGPT 16 U/L (7-56); AST/SGOT 33 U/L (14-36); BLOOD UREA NITROGEN 28 mg/dL (7-21); CALCIUM 8.9 mg/dL (8.4-10.5); GFR AFRICAN-AMERICAN 54; GFR NON-AFRICAN AMERICAN 45; LIPASE 123 U/L (23-300); PARTIAL THROMBOPLASTIN TIME 25.2 Seconds (25.1-36.5)
[2018-02-10 01:53] LABS: TROPONIN I < 0.01 ng/mL
[2018-02-10 03:33] LABS: URINE BILIRUBIN NEGATIVE (NEGATIVE); URINE BLOOD NEGATIVE (NEGATIVE); URINE GLUCOSE (UA) NEGATIVE (NEGATIVE); URINE LEUKOCYTE ESTERASE NEGATIVE Leu/uL (NEGATIVE); URINE PROTEIN TRACE mg/dL (<30 mg/dL); URINE UROBILINOGEN 0.2 E.U./dL (<1 E.U./dL)
[2018-02-10 03:34] LABS: URINE COLOR LIGHT YELLOW (YELLOW)
[2018-02-10 03:35] LABS: URINE APPEARANCE CLEAR (CLEAR)
[2018-02-10 03:52] LABS: URINE BACTERIA OCC (NEG); URINE RBC 0 - 2 /hpf (0-2); URINE WBC NEGATIVE /hpf (0-6)
[2018-02-10 04:45] VITALS: BP 120/72; PULSE 69; RESP 18
--- NOTE | 2018-02-10 09:17 | RAD ---
Date of service: 02/09/2018 HISTORY: abd pain COMPARISON: 11/23/2017 FINDINGS: LUNGS: No active pulmonary disease. PLEURA: No significant pleural effusion identified, no pneumothorax apparent. CARDIOVASCULAR: Normal. OSSEOUS STRUCTURES: No significant abnormalities. VISUALIZED UPPER ABDOMEN: Normal. OTHER FINDINGS: None. IMPRESSION: No active disease.
--- NOTE | 2018-02-10 13:47 | CT ---
Date of service: 02/10/2018 PROCEDURE: CT Abdomen and Pelvis without intravenous contrast HISTORY: right flank/abd pain COMPARISON: None. TECHNIQUE: Without contrast.. Contrast dose: Radiation dose: Total exam DLP = 463 mGy-cm. This CT exam was performed using one or more of the following dose reduction techniques: Automated exposure control, adjustment of the mA and/or kV according to patient size, and/or use of iterative reconstruction technique. FINDINGS: LOWER THORAX: Unremarkable. LIVER: Unremarkable. No gross lesion or ductal dilatation. 23 mm simple cyst in the liver GALLBLADDER AND BILE DUCTS: Unremarkable. PANCREAS: Unremarkable. No gross lesion or ductal dilatation. SPLEEN: Unremarkable. ADRENALS: Unremarkable. No mass. KIDNEYS AND URETERS: Unremarkable. No hydronephrosis. No solid mass. VASCULATURE: Unremarkable. No aortic aneurysm. BOWEL: Unremarkable. No obstruction. No gross mural thickening. APPENDIX: Unremarkable. Normal appendix. PERITONEUM: Unremarkable. No free fluid. No free air. LYMPH NODES: Unremarkable. No enlarged lymph nodes. BLADDER: Unremarkable. REPRODUCTIVE: Unremarkable. BONES: No acute fracture. OTHER FINDINGS: None. IMPRESSION: No acute intra-abdominal findings
--- NOTE | 2018-02-11 06:55 | CARD ---
APPROVED REPORT Date of service: 02/09/2018 EKG Measurement Heart [id number] <Conclusion> Sinus rhythm with 1st degree AV block Possible Left atrial enlargement Right bundle branch block Abnormal ECG
== END 2018-02-10 04:47 | disposition home or self-care (01) ==
LOC: ED 22:45
DX: R10.9 Unspecified abdominal pain (principal); R07.9 Chest pain, unspecified; E78.5 Hyperlipidemia, unspecified; I10 Essential (primary) hypertension; I25.10 Atherosclerotic heart disease of native coronary artery without angina pectoris; Z86.73 Personal history of transient ischemic attack (TIA), and cerebral infarction without residual deficits; C90.00 Multiple myeloma not having achieved remission

== ENCOUNTER 2018-11-11 15:41 | Outpatient (CLI) | payer OTHER | END 2018-11-11 15:42 | disposition home or self-care (01) | LOC: LAB 15:41 → RAD 15:42 ==

== ENCOUNTER 2018-11-13 08:44 | Outpatient (CLI) | payer SELFPAY | END 2018-11-13 08:45 | disposition home or self-care (01) | LOC: LAB 08:44 | DX: C90.00 Multiple myeloma not having achieved remission (principal); M25.569 Pain in unspecified knee; R50.9 Fever, unspecified; I10 Essential (primary) hypertension; E78.5 Hyperlipidemia, unspecified; R19.5 Other fecal abnormalities ==

== ENCOUNTER 2018-11-15 13:42 | Outpatient (CLI) | payer SELFPAY | END 2018-11-15 13:43 | disposition home or self-care (01) | LOC: LAB 13:42 ==

== ENCOUNTER 2018-11-18 08:59 | Outpatient (CLI) | payer SELFPAY | END 2018-11-18 09:00 | disposition home or self-care (01) | LOC: RAD 08:59 | DX: C90.00 Multiple myeloma not having achieved remission (principal) ==